=== PATIENT | male | born 1970 | race Caucasian/White ===

== ENCOUNTER 2016-10-10 09:06 | Emergency (ER) | payer OTHER ==
[~2016-10-10] VITALS: Ht 182.9 cm; Wt 70.3 kg
[~2016-10-10 09:06] MED LIST: CELEBREX200 MG PO; CORTISPORIN 1%-10 M1 AS; DIVALPROEX SOD500 MG PO; LIDODERM 5% PAT1 PAT TOP; LISINOPRIL HCTZ1 TAB PO; METFORMIN HCL500 MG PO; MIRTAZAPINE15 MG PO; OCUFLOX 10 ML10 ML OPH; PRAVASTATIN SOD20 M1 PO; TAMSULOSIN HYD0.4 MG PO; VICODIN ES 3001 TAB PO
[2016-10-10 09:46] VITALS: BP 156/110
[2016-10-10] MEDS ORDERED: NEURONTIN100 M1 PO (10:10)
[2016-10-10] MEDS ORDERED: PERCOCET 5-3251 EACH PO ×2 (10:10→10:24)
--- NOTE | 2016-10-10 10:12 | ED GENERAL ADULT ---
History of Present Illness General Chief Complaint: General Adult Stated Complaint: ?SHINGLES Source: patient Exam Limitations: no limitations Vital Signs & Intake/Output Vital Signs & Intake/Output Vital Signs Date Time Temp Pulse Resp B/P Pulse O2 O2 Flow FiO2 Ox Delivery Rate 10/10 0946 69.0 69 18 156/110 96 Room Air Allergies Coded Allergies: carisoprodol (From [facility]) (Intermediate, HIVES 10/10/16) lithium (Intermediate, "DRIED SKIN TO THE POINT OF BLEEDING" 10/10/16) Reconcile Medications Gabapentin 100 MG CAPSULE 1 CAP PO TID paain [MEDICAL MARIJUANA] (Reported) Oxycodone HCl/Acetaminophen (Percocet 5-325 MG Tablet) 5 MG-325 MG TABLET 1 TAB PO BID pain Triage Note: C/O PAIN "ALL OVER" A FEW WEEKS, STATES HE HAS CHRONIC PAIN DUE TO MULTIPLE MEDICAL PROBLEMS, (BACK, GB, TUMOR REMOVAL TO LEFT LEG). HAS PETECHAIE RASH ON R SIDE OF ABDOMEN. Triage Nurses Notes Reviewed? yes Onset: chronic Timing: recent history Injury Environment: home No Modifying Factors: none HPI: 46-year-old male comes into emergency room for further evaluation of chronic pain. Patient reports that he has been having symptoms of pain for many months. Patient reports he had a rash on the right side of his chest that was there and then is now gone but he's been having pain in that area over the skin. Patient has been using a topical medication called Artur Blanchard oil which has been helping. Pain is worse with light touch. Patient reports that he has had multiple medical issues for the past few years but today he is here just for medication for pain. Denies any fever or chills. Denies any active chest pain shortness of breath. Denies any other associated symptoms. (LORE MORENO) Past History Travel History Traveled to [place] past 21 day No Medical History Any Pertinent Medical History? see below for history Neurological: NONE EENT: NONE Cardiovascular: hypertension, HYPERLIPIDEMIA Respiratory: NONE Gastrointestinal: ENLARGED PROSTATE Hepatic: NONE Renal: NONE Musculoskeletal: disk herniation Psychiatric: bipolar disease Endocrine: diabetes Other Medical Hx: Testicular torsion Surgical History Surgical History: lumbar decompression, orchiectomy Psychosocial History What is your primary language Tajik Tobacco Use: Never used ETOH Use: denies use Family History Hx Contributory? No (LORE MORENO) Review of Systems Review of Systems Constitutional: Reports: no symptoms. EENTM: Reports: no symptoms. Respiratory: Reports: no symptoms. Cardiovascular: Reports: no symptoms. GI: Reports: no symptoms. Genitourinary: Reports: no symptoms. Musculoskeletal: Reports: see HPI. Skin: Reports: see HPI. Neurological/Psychological: Reports: no symptoms. Hematologic/Endocrine: Reports: no symptoms. Immunologic/Allergic: Reports: no symptoms. All Other Systems: Reviewed and Negative (LORE MORENO) Physical Exam Physical Exam General Appearance: well developed/nourished, no apparent distress, alert Head: atraumatic, normal appearance Eyes: Bilateral: normal appearance. Ears, Nose, Throat: normal pharynx, normal ENT inspection Neck: normal inspection Respiratory: normal breath sounds, no respiratory distress Cardiovascular: regular rate/rhythm Back: normal inspection Extremities: normal inspection Neurologic/Psych: awake, alert, oriented x 3 Skin: intact, tenderness over right side of chest wall with light touch, Core Measures ACS in differential dx? No CVA/TIA Diagnosis: No Severe Sepsis Present: No Septic Shock Present: No (LORE MORENO) Progress Differential Diagnoses I considered the following diagnoses in my evaluation of the patient: Chronic pain, postherpetic neuralgia, MS, muscle strain, cellulitis, shingles, Plan of Care: 10/10/2016 10:45:12 AM Patient was offered a further evaluation with blood work and EKG and other diagnostic imaging but declined. Patient just wants some pain medication. I feel that the symptoms are most consistent with likely postherpetic neuralgia from previous shingles rash. Patient was referred to her primary care doctor. Follow-up with them to have blood pressure rechecked. Return to the emergency room immediately if any other concerns worsening symptoms. Patient has very superficial pain to skin on the right side. Patient also has diffuse pain all over his entire back and the back with just light touch. Initial ED EKG: none (LORE MORENO) Departure Departure Disposition: HOME OR SELF CARE Condition: Stable Clinical Impression Primary Impression: Chronic pain Secondary Impressions: Post herpetic neuralgia Referrals: KRISTAN HURTADO DO PATIENT HAS NO PRIMARY CARE DR (PCP/Family) Additional Instructions: Taking gabapentin in Percocet as prescribed. Follow-up with primary care DrAlex provided. Return to emergency room immediately if any concerns worsening symptoms. Have your blood pressure rechecked. It was elevated here in the emergency room. Please go over all results of today's visit with your primary care doctor. Contact your primary care doctor to let them know you were here in the emergency room. There may be nonspecific findings which may not be related to your visit today here in the emergency room but may require further evaluation and chronic monitoring by your primary care doctor. If you had a laceration today the chance of foreign body always remains. You should follow-up with your primary care doctor for recheck in 3-5 days for a wound check. If you had an x-ray done there is a chance that a fracture could have been missed on initial read and you should follow-up with your primary care doctor for repeat x-rays if symptoms persist. If your blood pressure was elevated here in the emergency room please have rechecked by her primary care doctor within the next 48 hours by your primary care doctor. If you were prescribed a narcotic here in the emergency room or any type of controlled substances you're not allowed to drive while taking this medication or operate any type of heavy machinery. Narcotics can make you feel lightheaded dizziness nausea and can cause constipation. You may need to car pick up driver a stool softener. Thank you for choosing [facility] emergency room. Please return to the emergency room immediately if you have any other concerns worsening of symptoms. Departure Forms: Customer Survey General Discharge Information Prescriptions: Current Visit Scripts Oxycodone HCl/Acetaminophen (Percocet 5-325 MG Tablet) 1 TAB PO BID #15 TAB Gabapentin 1 CAP PO TID #90 CAP (LORE MORENO) PA/ACTIVATED SLUDGE ATTENDANT Co-Sign Statement Statement: ED Attending supervision documentation- [] I saw and evaluated the patient. I have also reviewed all the pertinent lab results and diagnostic results. I agree with the findings and the plan of care as documented in the PA's/ACTIVATED SLUDGE ATTENDANT's documentation. [X] I have reviewed the ED Record and agree with the PA's/ACTIVATED SLUDGE ATTENDANT's documentation. [] Additions or exceptions (if any) to the PAs/ACTIVATED SLUDGE ATTENDANT's note and plan are summarized below: [] (KAYLA KUMAR,VIVEK) Critical Care Note Critical Care Note Critical Care Time: non-applicable (LORE MORENO)
[2016-10-10] MEDS ORDERED: MEDICAL MARIJUANA (10:17)
[2016-10-10] MEDS ORDERED: GABAPENTIN100 M2 PO (10:24)
== END 2016-10-10 10:31 ==
LOC: ERH 09:06
DX: G89.29 Other chronic pain (principal); B02.29 Other postherpetic nervous system involvement